=== PATIENT | female | born 1990 | race Caucasian/White ===

== ENCOUNTER 2023-07-14 14:43 | Emergency (ER) | payer OTHER, SELFPAY ==
--- NOTE | 2023-07-14 14:51 | ED.SKABFB ---
HPI - Skin/Abscess/Foreign Bdy General Chief complaint: Skin/Abscess/Foreign Body Stated complaint: skin infection Time Seen by Provider: 07/14/23 14:51 Source: patient Mode of arrival: ambulatory Limitations: no limitations History of Present Illness HPI narrative: Maya is a 32-year-old female patient presenting to the clinic today with complaints of possible poison chiara to her face, chest, and around her waist. She reports symptoms have been going on for a few days now she has tried Ema dish soap, ticnue, and hydrocortisone to alleviate her symptoms. Related Data Allergies Allergy/AdvReac Type Severity Reaction Status Date / Time Penicillins Allergy Mild Rash Verified 07/14/23 15:11 Review of Systems Review of Systems: Pertinent positives per HPI. Patient denies any fever, chills, headache, visual changes, dizziness, cough, runny nose, sore throat, shortness of breath, chest pain, palpitations, nausea, vomiting, diarrhea, constipation, abdominal pain, or any urinary issues. PMFSH Comments At the time of my signature, I reviewed and agree with the nursing past medical, surgical, social, and family history. There is no relevant family history pertinent to the patient complaint. Exam Narrative: General: Well-developed, well nourished, in no apparent distress Head: Normocephalic, atraumatic. Cardio: Regular rate and rhythm, s1 and s2 normal, no murmur appreciated. Resp: Clear to auscultation bilaterally, no rhonchi, rales, wheezing or rubs. Integumentary: [place], warm, and dry, intact without lesion, red raised blistered itchy burning rash to the face, chest wall, and waist Course Course Emergency Course: Portions of this record may have been created with voice recognition software. Level of Care: Express Care Visit Vital Signs Vital signs: Vital Signs Temperature 36.8 C 07/14/23 14:58 Pulse Rate 69 07/14/23 14:58 Respiratory Rate 16 07/14/23 14:58 Blood Pressure 110/59 L 07/14/23 14:58 Pulse Oximetry 100 07/14/23 14:58 Oxygen Delivery Room Air 07/14/23 14:58 Temperature 36.8 C 07/14/23 14:58 Pulse Rate 69 07/14/23 14:58 Respiratory Rate 16 07/14/23 14:58 Blood Pressure 110/59 L 07/14/23 14:58 Pulse Oximetry 100 07/14/23 14:58 Oxygen Delivery Room Air 07/14/23 14:58 Vital signs reviewed MDM - Skin/Abscess/Foreign Bdy MDM Narrative Medical decision making narrative: At the time of visit patient is resting comfortably on the exam table. Patient appears to be nontoxic. Plan: I suspect patient has poison chiara dermatitis. Prescription for dexamethasone 10 mg IM was given as patient has a rash on her face. Prescriptions for taper dose of prednisone and triamcinolone cream was sent to the pharmacy. Supportive measures were discussed with the patient and they voiced understanding discharge instructions and agrees to treatment plan. Return precautions reviewed Differential Diagnosis Differential diagnosis: Likely abscess of skin or subcutaneous tissue, viral exanthem, urticaria, herpes zoster, cellulitis, eczema, insect bites and contact dermatitis Discharge Plan Discharge Clinical Impression: Allergic contact dermatitis due to plant Patient Disposition: Home, Self-Care Condition: Stable Instructions: Antibiotic Form, Poison Chiara (ED) Additional Instructions: Dexamethasone 10 mg IM given in the clinic today Apply triamcinolone cream as directed Take prednisone as directed Avoid hot showers May apply calamine lotion to rash Avoid scratching and this causes rash to spread May take benadryl 25-50mg every 6 hours as needed for itching. Follow up with your PCP in 3-5 days if symptoms persist or sooner if they worsen Go to the Emergency Room if symptoms worsen- fever, rash spreading with treatment, shortness of breath, tongue swelling, drooling, or chest pain Prescriptions: New prednisone 10 mg tablet 10 mg PO DAILY Qty: 30 0RF
[2023-07-14 14:58] VITALS: BP 110/59; PULSE 69; RESP 16; TEMP 36.8; O2SAT 100
[2023-07-14] MEDS: dexAMETHasone SOD PHOS INJ 10 MG/ML 1 ML VIAL IM (15:12)
== END 2023-07-14 15:26 | disposition home or self-care (01) ==
PROVIDERS: Emergency Provider Nurse Practitioner Family; PCP Family Medicine
DX: L23.7 Allergic contact dermatitis due to plants, except food (principal); N80.9 Endometriosis, unspecified
CPT/HCPCS: 96372; 99213; G0463; J1100

== ENCOUNTER 2024-09-07 10:09 | Emergency (ER) | payer OTHER, SELFPAY ==
[2024-09-07 10:20] VITALS: BP 117/80; PULSE 84; RESP 16; TEMP 36.9; O2SAT 100
--- NOTE | 2024-09-07 10:30 | ED_ITS ---
HPI - Skin/Abscess/Foreign Bdy General Chief complaint: Skin/Abscess/Foreign Body Stated complaint: RASH Time Seen by Provider: 09/07/24 10:30 Source: patient Mode of arrival: ambulatory Limitations: no limitations History of Present Illness HPI narrative: 33 yo F presents with poison chiara that has been progressively spreading over the past 2 wks. Has been applying prescription steroid cream withour relief. had th is medication from last episode of poison chiara. All systems reviewed and negative except as noted above. Related Data Allergies Allergy/AdvReac Type Severity Reaction Status Date / Time Penicillins Allergy Mild Rash Verified 09/07/24 10:18 Review of Systems Review of Systems: CONSTITUTIONAL: Denies fever, chills, or sweats. EYES: Denies visual changes, redness, or discharge. ENT: Denies rhinorrhea, congestion, sore throat, or otalgia. CARDIOVASCULAR: Denies chest pain, palpitations, or edema. RESPIRATORY: Denies cough or dyspnea. GASTROINTESTINAL: Denies abdominal pain, nausea, vomiting, or diarrhea. GENITOURINARY: Denies dysuria or hematuria. SKIN: Reports poison chiara rash MUSCULOSKELETAL: Denies back pain, joint pain, or myalgia. NEUROLOGIC: Denies headache, numbness, or weakness. PSYCHIATRIC: Denies anxiety or depression. All other systems reviewed are negative, except as documented in HPI. PMFSH Comments At time of signature, agree with nursing past medical, surgical, social and family history. There is no relevant family history pertinent to the presenting complaint. Exam Narrative: GENERAL: This is a well-nourished, well-developed patient, in no apparent distress. HEAD: normocephalic, atraumatic. EYES: PERRL. Sclera clear/white. Vision is grossly intact. EARS: External ears normal NOSE: External nose normal NECK: Neck supple, non-tender without lymphadenopathy, masses or thyromegaly. CARDIOVASCULAR: Regular rate and rhythm without murmurs, gallops, or rubs. RESPIRATORY: Clear to auscultation. Breath sounds equal bilaterally. No wheezes, rales, or rhonchi. SKIN: warm, Dry, intact with no suspicious lesions or rash, good texture and turgor. NEURO: awake, alert, and oriented to person, place and time. There were no obvious focal neurologic abnormalities. EXTREMITIES: erythematous vesicular rash to bilateral legs, arms, torso and face. Course Course Level of Care: Express Care Visit Vital Signs Vital signs: Vital Signs Temperature 36.9 C 09/07/24 10:20 Pulse Rate 84 09/07/24 10:20 Respiratory Rate 16 09/07/24 10:20 Blood Pressure 117/80 09/07/24 10:20 Pulse Oximetry 100 09/07/24 10:20 Temperature 36.9 C 09/07/24 10:20 Pulse Rate 84 09/07/24 10:20 Respiratory Rate 16 09/07/24 10:20 Blood Pressure 117/80 09/07/24 10:20 Pulse Oximetry 100 09/07/24 10:20 reviewed MDM - Skin/Abscess/Foreign Bdy MDM Narrative Medical decision making narrative: pt given IM kenalog to treat poison chiara rash. did not want to take prednisone. Will continue steroid cream. has been taking benadryl for itching and will continue. pt is well appearing, nontoxic. Differential Diagnosis Differential diagnosis: Likely urticaria, eczema and contact dermatitis Discharge Plan Discharge Clinical Impression: Dermatitis due to plants, including poison chiara, sumac, and oak Patient Disposition: Home Condition: Stable Instructions: Poison Chiara (ED) Additional Instructions: You were given a medication today intramuscular called Kenalog. This medication is used to treat poison chiara reaction. Apply prescription steroid cream sparingly to affected area, avoid face. Continue to take a daily antihistamine to treat itching. Take as directed on packaging. Follow-up with your doctor if improving. Patient Language: Polish Prescriptions: New hydrocortisone 1 % cream 1 applic topical BID PRN (Reason: poison chiara) Qty: 28.4 0RF Rx Instructions: Apply sparingly to affected areas. Avoid face. Follow-up/Referrals: Loly,Leah [Other] Time of Disposition: 10:38
[2024-09-07] MEDS: TRIAMCINOLONE ACET INJ 40 MG/ML VIAL IM (10:43)
== END 2024-09-07 10:54 | disposition home or self-care (01) ==
PROVIDERS: Emergency Provider Nurse Practitioner Family
DX: L23.7 Allergic contact dermatitis due to plants, except food (principal)
CPT/HCPCS: 96372; 99213; G0463; J3301

== ENCOUNTER 2024-12-28 16:53 | Emergency (ER) | payer OTHER, SELFPAY ==
--- OUTSIDE RECORDS SUMMARY | 2024-02-04 04:30 | XMS_ITS ---
Author Organization [facility] Address [address] [place], [place] [id number] Care Team Providers Care Steam Locomotive Firer/Fireman Name Role Phone Answer, Declined Unavailable Unavailable DUONG HWANG Unavailable [phone] Allergies No Known Allergies REASON FOR VISIT *Possible ingrown nail Vital Signs Height 68 in 02/04/2024 Weight 115 lbs 02/04/2024 BMI 17.48 kg/m2 02/04/2024 Height-cm 172.72 cm 02/04/2024 Weight-kg 52.16 kg 02/04/2024 Encounters Encounter Location Date Provider Diagnosis [facility] [address] [place], [place] [id number] 02/04/2024 DUONG HWANG Ingrowing nail L60.0 ; Cellulitis of left toe L03.032 ; Pain in left toe(s) M79.675 and Localized edema R60.0 Assessments Encounter Date Diagnosis (ICD Code) Assessment Notes Treatment Notes Treatment Clinical Notes Section Notes 02/04/2024 Ingrowing nail (ICD-10 - L60.0) I discussed various treatment options to the patient for their left hallux ingrown toenail. The patient decided on non-permenant removal of the nail border. The consent was signed and placed in the patients chart and all questions were answered. Following skin prep, the left hallux was injected with 6ccs of 1% lidocaine plain and the offending nail border was removed with use of ethiopian anvil, freer elevator and curved hemostat. A dry sterile compressive dressing was applied and the patient was given soaking instructions. 02/04/2024 Cellulitis of left toe (ICD-10 - L03.032) The area of cellulitis was evaluated and it should be noted that antibiotics were discussed and a close evaluation was performed to assess the need for IV antibiotics versus oral antibiotics. Due to the non-ascending nature of the cellulitis and with no signs of abscess, topical antibiotics were chosen. 02/04/2024 Pain in left toe(s) (ICD-10 - M79.675) 02/04/2024 Localized edema (ICD-10 - R60.0) Plan Of Treatment Treatment Notes Assessment Notes Ingrowing nail I discussed various treatment options to the patient for their left hallux ingrown toenail. The patient decided on non-permenant removal of the nail border. The consent was signed and placed in the patients chart and all questions were answered. Following skin prep, the left hallux was injected with 6ccs of 1% lidocaine plain and the offending nail border was removed with use of ethiopian anvil, freer elevator and curved hemostat. A dry sterile compressive dressing was applied and the patient was given soaking instructions. Cellulitis of left toe The area of cellu litis was evaluated and it should be noted that antibiotics were discussed and a close evaluation was performed to assess the need for IV antibiotics versus oral antibiotics. Due to the non-ascending nature of the cellulitis and with no signs of abscess, topical antibiotics were chosen. Next Appt Details Follow Up: 2 Weeks, Reason: History and Physical Notes * HPI (History of Present Illness) Category Sub-Category Detail Notes Category Not es HPI New Complaint Patient presents for a new patient consultation., Patient complains of an issue to her left great toe medial boarder being ingrown. Patient states that she tries to remove it herself at home, but the nail is now curling inward, and she is unable to cut it. , Duration of problem is several years. Patient states that her right great toenail is starting to do the same thing. , MA: mca Examination Category Sub-Category Detail Notes Category Not es Physical Examination Vascular: Dorsalis Pedis pulse 2/4 left foot Posterior Tibial pulse 2/4 left foot Dorsalis Pedis pulse 2/4 right foot Posterior Tibial pulse 2/4 right foot, Capillary Refill Time is noted to be less than 3 secs to ten digits, temperature gradient is warm to cool to bilateral lower extremity and pedal hair present, there are no varicosities noted to bilateral lower extremity. Dermatologic: there are no open lesions, an ingrowing nail is noted to lateral border of left hallux with periungual erythema and swelling present, noticeable serous drainage expressed from lateral nail border left hallux, interdigital spaces clean dry and intact, no ecchymoses, mild erythema noted to left hallux lateral nail fold Neurologic: protective sensation intact to light touch, vibratory sensation intact to first metatarsophalangeal joint bilaterally Musculoskeletal: no calf pain noted bilateral lower extremity, arch height 3/5 non weight bearing to bilateral foot, pain to palpation lateral and proximal nail fold to left hallux, pain to palpation nail plate left hallux Progress Notes * Maya ALEXANDREDOB:[birth year] (34 yo F)Acc No.[id number]:02/04/2024 Progress Notes Patient: Maya Talley Provider: Dejon HWANG :1990 A ge:33 Y S ex:Female Date:02/04/2024 Address:[address] [place] [address], [id number] Subjective: * Chief Complaints: * * Possible ingrown nail * HPI: H PI: New Complaint P atient presents for a new patient consultation., Patient complains of an issue to her left great toe medial boarder being ingrown. Patient states that she tries to remove it herself at home, but the nail is now curling inward, and she is unable to cut it. , Duration of problem is several years. Patient states that her right great toenail is starting to do the same thing. , MA: jose. * ROS: G eneral / Constitutional: Patient denies w eakness. R espiratory: Patient denies c hronic cough, shortness of breath, sputum production. C ardiovascular: Patient denies c hest pain, history of CA, irregular heartbeat. M usculoskeletal: Patient denies a rthritis, joint stiffness. ? P eripheral Vascular: Patient denies b lanching of skin, cold extremities, decreased sensation in extremities. S kin: Patient complains of n ail changes, ingrown nails. ? N eurologic: Patient denies d izziness, gait abnormality, headache. * Medical History: Back Trouble * Allergies: N .K.D.A.yesAllergies Verified. Objective: * Vitals: S hoe Size: 8, Wt:115lbs, Wt-k.16 kg, Ht: 68 in, Ht-cm: 172.72 cm, BMI:17.48Index, Body Surface Area: 1.58. * Examination: P hysical Examination: V ascular: Dorsalis Pedis pulse 2/4 left foot Posterior Tibial pulse 2/4 left foot Dorsalis Pedis pulse 2/4 right foot Posterior Tibial pulse 2/4 right foot, Capillary Refill Time is noted to be less than 3 secs to ten digits, temperature gradient is warm to cool to bilateral lower extremity and pedal hair present, there are no varicosities noted to bilateral lower extremity. Dermatologic: there are no open lesions, an ingrowing nail is noted to lateral border of left hallux with periungual erythema and swelling present, noticeable serous drainage expressed from lateral nail border left hallux, interdigital spaces clean dry and intact, no ecchymoses, mild erythema noted to left hallux lateral nail fold Neurologic: protective sensation intact to light touch, vibratory sensation intact to first metatarsophalangeal joint bilaterally Musculoskeletal: no calf pain noted bilateral lower extremity, arch height 3/5 non weight bearing to bilateral foot, pain to palpation lateral and proximal nail fold to left hallux, pain to palpation nail plate left hallux. Assessment: * Assessment: 1. I ngrowing nail - L60.0 (Primary) 2 . C ellulitis of left toe - L03.032? 3. P ain in left toe(s) - M79.675 4 . L ocalized edema - R60.0 Plan: * Treatment: 2. C ellulitis of left toe Notes: The area of cellulitis was evaluated and it should be noted that antibiotics were discussed and a close evaluation was performed to assess the need for IV antibiotics versus oral antibiotics. Due to the non-ascending nature of the cellulitis and with no signs of abscess, topical antibiotics were chosen. * Procedure Codes: 1 1730 REMOVAL OF NAIL PLATE, Modifiers: TA * Follow Up: 2 Weeks Billing Information: * Visit Code: 31886 Office Visit, New Pt., Level 3. Modifiers: 25 * Procedure Codes: 82107 REMOVAL OF NAIL PLATE. Modifiers: TA * Electronic signature of TONYA HWANG DPM on 12/28/2024 at 04:55 PM GRINDING SUPERVISOR Sign off status: Pending * Provider: Dejon HWANG Date: 04/06/2023 Generated for Aminata ramirez/Wing/Petros on: 02/28/2024 04:55 PM GRINDING SUPERVISOR
--- OUTSIDE RECORDS SUMMARY | 2024-12-12 07:30 | XMS_ITS ---
Author Organization [facility] [facility] Address [address] [place] [address] Care Team Providers Care Habitat Management Coordinator Name Role Phone Shanell Cassidy Unavailable [phone] REASON FOR VISIT 2 month f/u Social History Sex Assigned At : Social History Observation Description Sex Assigned At Female Encounters Encounter Location Date Provider Diagnosis [facility] [employer] [facility] [address] [facility] [address] [place] [address] 12/12/2024 Shanell Cassidy Plan Of Treatment Next Appt Details Provider Name:Kiah Tate, 03/06/2025 10:00:00 AM, [address], [facility] [address], [place], [address], Provider Name:Shanell muller, 05/15/2025 02:00:00 PM, [address], [facility] [address], [place], [address], Progress Notes * Maya ALEXANDREDOB:[birth year] (34 yo F)Acc No.[id number]:12/12/2024 Patient: Maya Talley Provider: KRISTIAN WILHELM :1990 A ge:34 Y S ex:Female Date:12/12/2024 Phone: Address:[address], [id number] Subjective: * Chief Complaints: * 2 month f/u Billing Information: * Procedure Codes: * Electronic signature of KRISTIAN Zuniga on 12/28/2024 at 04:56 PM DIRECTOR OF EDUCATION AND TRAINING Sign off status: Pending * Provider: Kailey SALDIVAR, PMHNP Date: Generated for Aminata ramirez/Wing/Petros on: 02/28/2024 04:56 PM DIRECTOR OF EDUCATION AND TRAINING
--- NOTE | ~2024-12-28 | CT_ITS ---
CT brain wo con HISTORY:trauma COMPARISON: None. TECHNIQUE: Axial images were obtained of the head without intravenous contrast. FINDINGS: No acute intracranial hemorrhage, mass effect or midline shift. No extra-axial fluid collections. The calvarium is intact. There are mucosal thickening of the right maxillary sinus and ethmoids. Mastoid air cells are clear. IMPRESSION: No acute intracranial hemorrhage or extra axial fluid collections. All CT scans at this facility are performed using low dose modulation techniques as appropriate to perform exam including the following: automated exposure control; use of iterative reconstruction technique; adjustment of the mA and/or kV according to patient size (this includes techniques or standardized protocols for targeted exams where dose is matched to indication/reason for exam). Reviewed, dictated and finalized at location S. ATCHER MAINTENANCE IMPRESSION: No acute intracranial hemorrhage or extra axial fluid collections. All CT scans at this facility are performed using low dose modulation techniqu es as appropriate to perform exam including the following: automated exposure c ontrol; use of iterative reconstruction technique; adjustment of the mA and/or kV according to patient size (this includes techniques or standardized protocol s for targeted exams where dose is matched to indication/reason for exam).
--- NOTE | ~2024-12-28 | XR_ITS ---
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 Findings: No acute fracture or malalignment. No significant degenerative changes. Soft tissues unremarkable. Impression: No acute fracture or malalignment. Reviewed, dictated and finalized at location P. GRAIN OR LIVESTOCK FARM MANAGER Impression: No acute fracture or malalignment.
--- NOTE | ~2024-12-28 | CT_ITS ---
CT cervical spine wo con HISTORY: trauma COMPARISON: None TECHNIQUE: Axial images of the cervical spine were obtained. Multiplanar reconstruction in the coronal, sagittal and axial reformats to evaluate for cervical fracture. FINDINGS: The images demonstrate no acute fracture or paravertebral soft tissue swelling. There is no high-grade central or foraminal stenosis. No significant degenerative changes are noted. The visualized aspect of the upper lungs are clear. IMPRESSION: No acute fracture or subluxation. All CT scans at this facility are performed using low dose modulation techniques as appropriate to perform exam including the following: automated exposure control; adjustment of the mA and/or kV according to patient size (this includes techniques or standardized protocols for targeted exams where does is matched to indication/reason for exam; i.e. extremities or head); use of iterative reconstruction technique). Reviewed, dictated and finalized at location S. OR RANCH ANIMAL CARETAKER IMPRESSION: No acute fracture or subluxation. All CT scans at this facility are performed using low dose modulation techniqu es as appropriate to perform exam including the following: automated exposure c ontrol; adjustment of the mA and/or kV according to patient size (this includes techniques or standardized protocols for targeted exams where does is matched to indication/reason for exam; i.e. extremities or head); use of iterative gonsalo nstruction technique).
--- NOTE | ~2024-12-28 | CT_ITS ---
CT chest abdomen pelvis w con HISTORY: trauma . COMPARISON: None. TECHNIQUE: Axial images of the chest, abdomen and pelvis were obtained without and with infusion of 100 Isovue 300. FINDINGS: CT CHEST: The examination demonstrates no pulmonary nodules, infiltrates and/or effusions. No pathologically enlarged hilar or mediastinal lymphadenopathy is seen. Cardiac size and mediastinal configuration are normal in appearance. The pulmonary artery and thoracic aorta are normal in caliber and patency. Osseous structures are intact. The visualized organs of the upper abdomen are unremarkable. IMPRESSION: No acute cardiopulmonary process. No pathologic enhancement is noted. No pathologically enlarged mediastinal lymphadenopathy is noted. CT abdomen and pelvis with contrast: The liver parenchyma is unremarkable. No intrahepatic mass or ductal dilatation is evident. The gallbladder is unremarkable. The pancreas and spleen are normal in appearance. The adrenal glands are symmetric in size. The kidneys demonstrate symmetric uptake and excretion of contrast. No cystic mass is evident. There is no solid mass. There is no hydronephrosis. Evaluation of the stomach and bowel loops are limited due to lack of oral contrast. The appendix is not visualized however no secondary signs of appendicitis are identified. The bladder and rectum are normal. The uterus and both adnexa are unremarkable. No free intraperitoneal fluid or air is evident. There is no significant retroperitoneal lymphadenopathy. The aorta, visceral vessels and renal arteries demonstrate normal caliber and patency. The lower thoracic and lumbar vertebrae are in normal alignment. IMPRESSION: No acute abnormality is noted in the abdomen and pelvis. All CT scans at this facility are performed using low dose modulation techniques as appropriate to perform exam including the following: automated exposure control; use of iterative reconstruction technique; adjustment of the mA and/or kV according to patient size (this includes techniques or standardized protocols for targeted exams where dose is matched to indication/reason for exam) Reviewed, dictated and finalized at location [facility] IMPRESSION: No acute cardiopulmonary process. No pathologic enhancement is noted. No pathologically enlarged mediastinal lymphadenopathy is noted. CT abdomen and pelvis with contrast: The liver parenchyma is unremarkable. No intrahepatic mass or ductal dilatation is evident. The gallbladder is unremarkable. The pancreas and spleen are zena l in appearance. The adrenal glands are symmetric in size. The kidneys demonstrate symmetric uptake and excretion of contrast. No cystic m ass is evident. There is no solid mass. There is no hydronephrosis. Evaluation of the stomach and bowel loops are limited due to lack of oral contr ast. The appendix is not visualized however no secondary signs of appendicitis are identified. The bladder and rectum are normal. The uterus and both adnexa are unremarkable. No free intraperitoneal fluid or air is evident. There is no significant retr operitoneal lymphadenopathy. The aorta, visceral vessels and renal arteries demonstrate normal caliber and p atency. The lower thoracic and lumbar vertebrae are in normal alignment. IMPRESSION: No acute abnormality is noted in the abdomen and pelvis. All CT scans at this facility are performed using low dose modulation techniqu es as appropriate to perform exam including the following: automated exposure c ontrol; use of iterative reconstruction technique; adjustment of the mA and/or kV according to patient size (this includes techniques or standardized protocol s for targeted exams where dose is matched to indication/reason for exam)
--- OUTSIDE RECORDS SUMMARY | 2024-12-28 16:56 | XMS_ITS | Patient Health Record ---
Author Organization [facility] Address [address] [place] [address] Care Team Providers Care Relief Man Name Role Phone Shanell Cassidy Unavailable [phone] Allergies No Known Allergies Results Component Value Reference Range Notes UDT Reviewed date:10/19/2024 09:34:33 AM Interpretation: Performing Lab: Notes/Report: Amphetamine (AMP) N 0 - 1000 ng/ml Buprenorphine (BUP) N 0 - 10 ng/ml Oxazepam (BZO) N 0 - 300 ng/ml Cocaine (OLIVIA) N 0 - 300 ng/ml Methamphetamine (mAMP) N 0 - 300 ng/ml Methylenedioxymethamphetamine (MDMA) N 0 - 500 ng/ml Morphine (MOP) N 0 - 25 ng/ml Methadone (MTD) N 0 - 300 ng/ml Oxycodone (OXY) N 0 - 300 ng/ml THC N 0 - 50 ng/ml x N 0 - 1000 ng/ml x N 0 - 1000 ng/ml x N 0 - 300 ng/ml x N 0 - 300 ng/ml Reason For Referral No Information Medications Medication SIG (Take, Route, Frequency, Duration) Notes Start Date End Date Status hydrOXYzine HCl 10 MG Tablet 1 tablet as needed Orally Once a day 10/20/2024 Active Propranolol HCl 10 MG Tablet 1 tablet Orally once a day; Duration: 30 days As needed for anxiety 10/20/2024 Not-Taking Social History Tobacco Use: Social History Observation Description Date Details (start date - stop date) Never Smoker NA - NA Sex Assigned At : Social History Observation Description Sex Assigned At Female Social History Miscellaneous: Social Info Question Answer Notes Safety issues: Are there any firearms in the house? No Social History Social Info Question Answer Notes Household: Marital Status: Number of Adults in household: 2 Number of Children in Household: 4 Level of Education: Finished High School Drug/Alcohol: Social Info Question Answer Notes Drugs Have you used drugs other than those for medical reasons in the past 12 months? No AUDIT-C (Standard) Did you have a drink containing alcohol in the past year? Yes How often did you have six or more drinks on one occasion in the past year? Never (0 point) How many drinks did you have on a typical day when you were drinking in the past year? 1 or 2 drinks (0 point) How often did you have a drink containing alcohol in the past year? Monthly or less (1 point) Tobacco Use: Social Info Question Answer Notes Tobacco Control (Standard) Tobacco use: Nonsmoker Problems Problem Type SNOMED Code ICD Code Onset Dates Problem Status W/U Status Risk Notes Problem Generalized anxiety disorder (90139857) ERIN (generalized anxiety disorder) (F41.1) Active confirmed Vital Signs Heart Rate 87 /min 10/14/2024 Height-cm 172.72 cm 10/20/2024 Blood pressure diastolic 84 mm Hg 10/14/2024 Weight-kg 48.99 kg 10/14/2024 Height 68 in 10/20/2024 Blood pressure systolic 113 mm Hg 10/14/2024 Weight 108 lbs 10/14/2024 BMI 16.42 kg/m2 10/14/2024 Encounters Encounter Location Date Provider Diagnosis [facility] [place] [facility] [address] [facility] [[email or web address] [address] [place] [address] 10/14/2024 Shanell Cassidy ERIN (generalized anxiety disorder) F41.1 [facility] [place] [facility] [place] [address] [facility] [[email or web address]] [address] [place] [address] 10/20/2024 Shanell Kursteven ERIN (generalized anxiety disorder) F41.1 [facility] [place] [facility] [place] [address] [facility] [[email or web address]] [address] [place] [address] 12/16/2024 Shanell Kursteven ERIN (generalized anxiety disorder) F41.1 [facility] [place] [facility] [place] [address] [facility] [[email or web address] [address] [place] [address] 10/18/2024 Shanell Cassidy [facility] [place] [facility] [place] [address] [place] [address] 10/20/2024 Shanell Cassidy [facility] [place] [address] [place] [address] 10/20/2024 Shanell Cassidy [facility] [address] [place] [address] 12/16/2024 Shanell Cassidy Assessments Encounter Date Diagnosis (ICD Code) Assessment Notes Treatment Notes Treatment Clinical Notes Section Notes 10/14/2024 ERIN (generalized anxiety disorder) (ICD-10 - F41.1) 10/20/2024 ERIN (generalized anxiety disorder) (ICD-10 - F41.1) 12/16/2024 ERIN (generalized anxiety disorder) (ICD-10 - F41.1) 10/14/2024 Other Discussed treatment options with patient, she hesitates to start a daily medication such as SSRIs given strong familial history of suicide attempts and completed suicides. Start hydroxyzine 10mg TID PRN for anxiety management. Discussed depressive symptoms compounded by situational stressors, trauma history which she has sought counseling for, anxiety. Expect depression to improve with situational stress resolution, anxiety better managed. -Educated can utilize Hanny's Wort as an alternative for depression, anxiety management. Research supports use in mild to moderate depression. Can not use with other psychiatric medications generally due to increase risk of serotonin syndrome. -Assessment and treatment plan reviewed with patient. -Compliance with treatment plan importance discussed. -Discussed the risks/benefits of this medication -Discussed medication side effects. -Contact office if symptoms worsen. -Discussed that it can take up to 6-8 weeks to see full therapeutic effects of psychotropic medications. -Crisis prevention hotline 988. 10/20/2024 Other Start propranolol 10mg qd prn for anxiety Patient educated on all medications including potential benefits, side effects, risks. Educated on proper dosing schedule and importance of compliance. -Assessment and treatment plan reviewed with patient. -Compliance with treatment plan importance discussed. -Discussed the risks/benefits of this medication -Discussed medication side effects. -Contact office if symptoms worsen. -Discussed that it can take up to 6-8 weeks to see full therapeutic effects of psychotropic medications. -Crisis prevention hotline 988. 12/16/2024 Other Continue hydroxyzine as needed for panic, anxiety Patient educated on all medications including potential benefits, side effects, risks. Educated on proper dosing schedule and importance of compliance. Referred to therapy with Kiah for possible EMDR Supportive theapy provided -Assessment and treatment plan reviewed with patient. -Compliance with treatment plan importance discussed. -Discussed the risks/benefits of this medication -Discussed medication side effects. -Contact office if symptoms worsen. -Discussed that it can take up to 6-8 weeks to see full therapeutic effects of psychotropic medications. -Crisis prevention hotline 148. Plan Of Treatment Next Appt Details Provider Name:Kiah Tate, 03/06/2025 10:00:00 AM, [address], [facility] [[email or web address]] [address], [place], [address], Provider Name:Shanell muller, 05/15/2025 02:00:00 PM, [address], [facility] [[email or web address]] [address], [place], [address], Insurance Providers Payer Name Payer Address Payer Phone Subscriber Number Group Number Insured Name Patient Relationship to Insured Coverage Start Date Coverage End Date [facility] [address] [place] [address] [id number] Maya Arias Self - patient is the insured Medical (General) History Medical History History ICD Code abdominal aortic aneurysm: No atrial fibrillation: No chronic fatigue syndrome: No essential tremor: No hyperlipidemia: No hypertension: No Parkinson's disease: No restless leg syndrome: No stroke: No subdural hematoma: No type 1 diabetes mellitus: No type 2 diabetes mellitus: No vitamin B12 deficiency: No vitamin D deficiency: No Surgical History Surgery Date(Month/Year) Labroscopy for endometriosis
--- OUTSIDE RECORDS SUMMARY | 2024-12-28 16:56 | XMS_ITS | Clinical Summary ---
Author Organization [facility] Address [address] [place] [address] Care Team Providers Care Harness Cleaner Name Role Phone Unavailable Primary Care Provider Unavailabl e Social History Tobacco Use Types Packs/Day Years Used Date Smoking Tobacco: Never Assessed Comments Unknown Sex and Gender Information Value Date Recorded Sex Assigned at Not on file Legal Sex Female 4:45 PM CDT Gender Identity Not on file Sexual Orientation Not on file Plan of Treatment Health Maintenance Due Date Last Done Comments Cervical Cancer Screening Pa p Smear (Age 30 to 64) Every 3 Years 1990 Annual Physical 1993 Hepatitis C 2008 DTaP, Tdap and Td Vaccines ( 1 - Tdap) 2009 Hepatitis B Vaccines (1 of 3 - 19+ 3-dose series) 2009 HPV Vaccines (1 - 3-dose SCD M series) 2017 Cervical Cancer Screening Pa p with HPV Testing (Age 30 to 64) Every 5 Years 2020 Cervical Cancer Screening with HPV 2020 COVID-19 Vaccine (2024-2 6 season) 2024 Influenza Adult (#1) 2024 Hepatitis A Vaccines Aged Out No long er eligible based on patient's age to complete this topic Meningococcal B Vaccine Aged Out No l onger eligible based on patient's age to complete this topic Meningococcal Vaccine Aged Out No cris ernst eligible based on patient's age to complete this topic Pneumococcal Vaccine: Pediat rics (0 to 5 Years) and At-Risk Patients (6 to 49 Years) Aged Out No longer eligible b ased on patient's age to complete this topic RSV Immunizations Under 20 Months Aged Out No longer eligible based on patient's age to complete this topic
--- OUTSIDE RECORDS SUMMARY | 2024-12-28 16:56 | XMS_ITS | Encounter Summary ---
Author Organization [facility] Address [address] [place] [address] Care Team Providers Care Keg Filler Name Role Phone [facility], External Provider Primary Care Provider U navailable Reason for Visit * Reason Onset Date Comments Feeding Problem 03/20/2015 Encounter Details Date Type Department Care Team (Late st Contact Info) Description 03/20/2015 Telephone [facility] [address] [place] [address] Viktoria Carr RN Feeding Problem Social History Tobacco Use Types Packs/Day Years Used Date Smoking Tobacco: Never Smokeless Tobacco: Never Alcohol Use Standard Drinks/Week Comments No 0 (1 standard drink = 0.6 oz pur e alcohol) Comments No Sex and Gender Information Value Date Recorded Sex Assigned at Not on file Legal Sex Female 11:41 AM CDT Gender Identity Not on file Sexual Orientation Not on file documented as of this encounter Miscellaneous Notes * Telephone Encounter - Viktoria Carr RN - 03/20/2015 3:41 PM CST Maya called [facility] [place] to report feeding issues with her 9 week old daughter, born here [birth year]. Reports is fussy at breast, and this has increased in recent days. Has concerns about her latch including tight posterior frenulum and had this evaluated by a physician. She states upon pumping her milk supply has decreased. Outpatient consult scheduled for 03/21/15 ATIONIST documented in this encounter Plan of Treatment Not on file documented as of this encounter Visit Diagnoses Not on filedocumented in this encounter Care Teams Keg Filler Relationship Specialty Start Date End Date [facility], External Provider [address] [place] [address] PCP - General 02/24/18 documented as of this encounter
--- OUTSIDE RECORDS SUMMARY | 2024-12-28 16:56 | XMS_ITS | Patient Health Record ---
Author Organization [facility] Address [address] [place], [place] [address] Care Team Providers Care Credit Compliance Officer Name Role Phone Answer, Declined Unavailable Unavailable DUONG HWANG Unavailable [phone] Allergies No Known Allergies Reason For Referral No Information Vital Signs Height-cm 172.72 cm 02/04/2024 Weight-kg 52.16 kg 02/04/2024 Height 68 in 02/04/2024 Weight 115 lbs 02/04/2024 BMI 17.48 kg/m2 02/04/2024 Encounters Encounter Location Date Provider Diagnosis [place] [address] [place], [place] [id number] 02/04/2024 DUONG HWANG Ingrowing nail L60.0 ; Cellulitis of left toe L03.032 ; Pain in left toe(s) M79.675 and Localized edema R60.0 Assessments Encounter Date Diagnosis (ICD Code) Assessment Notes Treatment Notes Treatment Clinical Notes Section Notes 02/04/2024 Cellulitis of left toe (ICD-10 - L03.032) The area of cellulitis was evaluated and it should be noted that antibiotics were discussed and a close evaluation was performed to assess the need for IV antibiotics versus oral antibiotics. Due to the non-ascending nature of the cellulitis and with no signs of abscess, topical antibiotics were chosen. 02/04/2024 Ingrowing nail (ICD-10 - L60.0) I [...] nail border was removed with use of martiniquais anvil, freer elevator and curved hemostat. A dry sterile compressive dressing was applied and the patient was given soaking instructions. 02/04/2024 Pain in left toe(s) (ICD-10 - M79.675) 02/04/2024 Localized edema (ICD-10 - R60.0) Plan Of Treatment No Information Insurance Providers Payer Name Payer Address Payer Phone Subscriber Number Group Number Insured Name Patient Relationship to Insured Coverage Start Date Coverage End Date [facility] [address] [address] [place] [address] [id number] Maya Arias Self - patient is the insured Medical (General) History Medical History History ICD Code Back Trouble
--- OUTSIDE RECORDS SUMMARY | 2024-12-28 16:56 | XMS_ITS | Clinical Summary ---
Author Organization [facility] Address [address] [place] [address] Phone Care Team Providers Care Dockmaster Name Role Phone [facility], External Provider Primary Care Provider U navailable Allergies Active Allergy Reactions Criticality Noted Date Comments Penicillins Rash Medium 09/13/2014 Rash, noted as a child Medications vit-iron fumarate-FA ( S) 27-0.8 mg TabletIndication s:juice plus is Take 1 Tablet by mouth daily . Active Active Problems Problem Noted Date Diagnosed Date care of multigravida, antepartum 2020 Rh negative status during 09/13/2014 Overview (07/17/2020): Last Assessment & Plan: Patient received Rhogam injection on 06/29/14 secondary to threatened AB. Date confirmed after reviewing patient's medical records, patient was 12.3 weeks gestation. Assessment & Plan (10/05/2014 7:21 AM CDT): Patient received Rhogam injection on 06/29/14 secondary to threatened AB. Date confirmed after reviewing patient's medical records, patient was 12.3 weeks gestation. Assessment & Plan (09/13/2014 11:23 AM CDT): Patient reports was given Rhogam at 11 weeks due to episode of bleeding. Patient will need Rhogam at 28 weeks Vaginal bleeding before 22 weeks gestation Acute cystitis with hematuria Resolved Problems Problem Noted Date Diagnosed Date Resolved Date 01/11/15 01/11/2015 02/23/2020 care in third trimester 01/04/2015 03/09/2017 state, incidental 09/13/2014 0 03/09/2017 Low-lying placenta in second trimester 08/16/2014 11/02/2014 Overview (11/02/2014): Sonogram on 08/16/14 with [facility] indicated anterior placenta with inferior edge that extends to within 2cm of internal os, Plan for patient to have repeat scan at [facility] at 28 weeks for placenta location. SONO ON 10/17/2014 in [facility]---PLACENTA NO LONGER LOW LYING Immunizations Immunization Administration Dates Next Due Rho (D) IMMUNE GLOBULIN 1,50 0 UNIT(300 MCG) INJECTION 03/17/2019,01/29/2017,10/31/2016,2014,10/19/2014 Rhogam (Rhig) Human Full Dose IM 017,10/31/2016,01/12/2015,2014 Family History Medical History Relation Name Comments Healthy Father Healthy Maternal Grandfather Healthy Maternal Grandmother Healthy Mother Healthy Paternal Grandfather Healthy Paternal Grandmother Healthy Sister Breast Cancer Neg Hx Colon Cancer Neg Hx Ovarian Cancer Neg Hx Relation Name Status Comments Father Alive Maternal Grandfather Alive Maternal Grandmother Alive Mother Alive Paternal Grandfather Alive Paternal Grandmother Alive Sister Alive Social History Tobacco Use Types Packs/Day Years Used Date Smoking Tobacco: Never Smokeless Tobacco: Never Alcohol Use Standard Drinks/Week Comments No 0 (1 standard drink = 0.6 oz pur e alcohol) Feeling Safe Answer Date Recorded Are you in a relationship wi th someone who hurts you emotionally and/or physically? No 08/23/2022 Comments No Sex and Gender Information Value Date Recorded Sex Assigned at Not on file Legal Sex Female 11:41 AM CDT Gender Identity Not on file Sexual Orientation Not on file Last Filed Vital Signs Vital Sign Reading Time Taken Comments Blood Pressure 115/82 08/23/2022 9:05 AM CDT Pulse 62 08/23/2022 8:45 AM CDT Temperature 36.9 C (98.4 F) 08/23/2022 2:53 AM CDT Respiratory Rate 16 08/23/2022 6:00 AM CDT Oxygen Saturation 100% 08/23/2022 8:45 AM CDT Inhaled Oxygen Concentration - - Weight 49.9 kg (110 lb) 08/23/2022 2:53 AM CDT Height 172.7 cm (5' 8) 08/23/2022 2:53 AM CDT Body Mass Index 16.73 08/23/2022 2:53 AM CDT Plan of Treatment Health Maintenance Due Date Last Done Comments DTAP/TDAP/TD VACCINES (1 - Tdap) 2009 HEPATITIS B VACCINES (1 of 3 - 19+ 3-dose series) 11/17 HPV/Cotest (21-29) 12/11/2011 HPV VACCINES (1 - 3-dose SCDM series) 2017 CERVICAL CANCER SCREENING 2020 HPV/Cotest (30-65) 2020 PAP SMEAR 2020 05/08/2014 INFLUENZA VACCINE (#1) 2024 Procedures Procedure Name Priority Date/Time Associated Diagnosis Comments CERV/VAG CYTOPATH, THIN PREP Routine 05/08/2014 Rh negative status during , second trimester, fetus 1 state, incidental from Last 3 Months or Most Recently Relevant to Health Maintenance Results * CERV/VAG CYTOPATH, THIN PREP (05/08/2014) ABSTRACTED CERV OR VAG CYTOPATH NILM EXTERNAL LAB Endocervical Historical Provider PATHOLOGY/CYTOLOGY ORDERABLE S Final Result EXTERNAL LAB from Last 3 Months or Most Recently Relevant to Health Maintenance Insurance [facility] [id number] Advance Directives For more information, please contact: [phone] * Full Code (Latest Code Status on File) Date Activated Date Inactivated Comments 09/02/2020 9:47 PM 09/03/2020 10:39 PM * Full Code Date Activated Date Inactivated Comments 09/02/2020 8:19 AM 09/02/2020 9:47 PM * Full Code Date Activated Date Inactivated Comments 01/27/2017 3:37 AM 01/27/2017 11:49 PM * Full Code Date Activated Date Inactivated Comments 01/11/2015 2:15 PM 01/12/2015 4:49 PM * Full Code Date Activated Date Inactivated Comments 01/11/2015 4:30 AM 01/11/2015 2:15 PM Care Teams Dockmaster Relationship Specialty Start Date End Date [facility], External Provider [address] [place] [address] PCP - General 02/24/18
--- OUTSIDE RECORDS SUMMARY | 2024-12-28 16:56 | XMS_ITS | Clinical Summary ---
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 Role Phone Lonnie Matute MD Primary Care Provider [phone] Allergies Active Allergy Reactions Criticality Noted Date Comments Penicillins Anaphylaxis,Rash High 09/13/2014 rash Medications hydrOXYzine (ATARAX) 10 mg tablet Take 1 tablet (10 mg total) by mouth daily as needed 10/14/2024 Active propranoloL (INDERAL) 10 mg tablet Take 1 tablet (10 mg total) by mouth daily as needed 10/20/2024 Active Active Problems Problem Noted Date Diagnosed Date Abnormal vaginal bleeding 10/26/2024 Resolved Problems Problem Noted Date Diagnosed Date Resolved Date Normal labor 01/11/2015 10/10/2024 Rh negative status during 09/13/2014 10/10/2024 Overview (02/01/2019): Last Assessment & Plan: Patient received Rhogam injection on 06/29/14 secondary to threatened AB. Date confirmed after reviewing patient's medical records, patient was 12.3 weeks gestation. Encounters Date Type Department Care Team Description 11/02/2024 Telephone [facility] [address] [place] [address] [address] [place] [address] Jorge Santamaria MD 10/26/2024 Telephone [facility] [address] [place] [phone] Jorge Santamaria MD Surgery Confirmation 10/25/2024 Telephone [facility] [address] [place] [phone] Jorge Santamaria MD Surgery Confirmation 10/24/2024 3:30 PM CDT Office Visit [facility] [address] [place] [phone] Jorge Santamraia MD Abnormal uterine bleeding (Primary Dx); Endometriosis 10/24/2024 1:30 PM CDT - 10/24/2024 11:59 PM CDT Hospital Encounter [facility] - Ultrasound [address] [facility], 7th Floor, [address] [facility] [place] [address] Menorrhagia with irregular cycle Discharge Disposition: Discharge to home or self care 10/11/2024 Results Follow-Up [facility] [address] [address] Mahnaz Joseph CNM Comprehensive metabolic panel, CBC with auto differential, T4, free, Additional followed-up results: 6 10/10/2024 1:34 PM CDT - 10/10/2024 11:59 PM CDT Hospital Encounter [address] [phone] Menorrhagia with irregular cycle; Screening for malignant neoplasm of cervix Discharge Disposition: Discharge to home or self care 10/10/2024 12:00 PM CDT Office Visit [facility] Midwifery at [address] [address] Mahnaz Joseph CNM Screening for malignant neoplasm of cervix (Primary Dx); Menorrhagia with irregular cycle 10/10/2024 11:30 AM CDT Clinical Support [facility] [address] [facility] [address] [place] [address] Endometriosis (Primary Dx); Abnormal uterine bleeding (AUB) 10/10/2024 Telephone [facility] [address] [facility] [address] [place] [address] Jorge Santamaria MD from Last 3 Months Immunizations Immunization Administration Dates Next Due Rho (D) Immune Globulin 01/29/2017,10/31/2016,,10/19/2014 Family History Medical History Relation Name Comments Breast cancer Other Breast Cancer - [place] (Added by TW Conv) Cancer Other Reported Family History Of Cancer - [place] (Added by TW Conv) Heart disease Other Heart Disease - [place] GRANDMA (Added by TW Conv) Relation Name Status Comments Other Social History Tobacco Use Types Packs/Day Years Used Date Smoking Tobacco: Never Smokeless Tobacco: Never Personal Safety Answer Date Recorded Have you ever been in or are you currently in a harmful physical or emotional relationship or is someone making you feel afraid or unsafe? 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 Gender Identity Not on file Sexual Orientation Not on file Obstetrics History Para Term AB IAB SAB Ectopic Multiple Livin g Live Births 3 2 2 2 2 Date Outcome GA Total Labor Labor/2nd/3rd Weight Sex Type Anes PTL Jade A1 A5 Name Clin 2014 Term 40w 3d 2h 05m/ 2.892 kg (6 lb 6 oz) F Vag-S pont Epidur al N Livin g 8 9 Leydi NEGRETE Delivery Location:[facility] Comments:No observed a nomalies 2016 Term 40w 3d 12h 40m/0h 13m/ 3.033 kg (6 lb 11 oz) F Vag-S pont N Livin g 9 9 Mehdi GUEVARA Delivery Location:[facility] Comments:No observed a nomalies Last Filed Vital Signs Vital Sign Reading Time Taken Comments Blood Pressure 98/64 10/24/2024 3:13 PM CDT Pulse 54 08/21/2023 11:05 PM CDT Temperature 36.8 C (98.3 F) 08/21/2023 6:35 PM CDT Respiratory Rate 18 08/21/2023 6:35 PM CDT Oxygen Saturation 98% 08/21/2023 11:05 PM CDT Inhaled Oxygen Concentration - - Weight 50.4 kg (111 lb 3.2 oz) 10/24/2024 3:13 P M CDT Height 157.5 cm (5' 2) 10/24/2024 3:13 PM CDT Body Mass Index 20.34 10/24/2024 3:13 PM CDT Plan of Treatment Upcoming Encounters Date Type Department Care Team (Latest Contact Info) Description 01/31/2025 7:30 AM 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 Hospital Encounter [facility] [address] [place] [phone] Jorge Santamaria MD [address] [address] 01/31/2025 7:30 AM WELLFIELD TECHNICIAN - 01/31/2025 10:30 AM WELLFIELD TECHNICIAN Surgery [facility] [address] [place] [phone] Jorge Santamaria MD [address] [address] Robotic Assisted Hysterectomy, Bilateral Salpingectomy Scheduled Procedures Name Priority Associated Diagnoses Date/Ti me XI HYSTERECTOMY - LAPAROSCOPIC ROBOTIC ASSISTED Abnormal vaginal bleeding 01/31/2025 7:30 AM 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 Health Maintenance Due Date Last Done Comments Depression Screening 1990 Hepatitis C Screening 1990 DTaP/Tdap/Td Vaccine (1 - Tdap) 2001 Varicella Vaccines (1 of 2 - 13+ 2-dose series) 12/11/2003 Hepatitis B Screening 2008 Regular Well Visit/Exam 18-64 2008 HPV Vaccines (1 - 3-dose SCD M series) 2017 Influenza Vaccine (#1) 2024 Cervical Cancer Screening 10/10/20252024, 10/10/2024 Pneumococcal vaccine <65 Aged Out No longer eligible based on patient's age to complete this topic Procedures Procedure Name Priority Date/Time Associated Diagnosis Comments US TRANSVAGINAL Schedule Routine, Read Routine (OP Routine) 10/26/2024 7:56 PM CDT Endometriosis Abnormal uterine bleeding (AUB) US PELVIS W ENDOVAGINAL Schedule Routine, Read Routine (OP Routine) 10/24/2024 1:34 PM CDT Menorrhagia with irregular cycle PAP AND HIGH RISK HPV, REFLEX TO GENOTYPING Routine 10/10/2024 1:26 PM CDT Screening for malignant neoplasm of cervix SURGICAL PATHOLOGY Routine 10/10/2024 1: 26 PM CDT Menorrhagia with irregular cycle EGFR Routine 10/10/2024 1:25 PM CDT Menorrhagia with irregular cycle THINPREP PROCESSING (MOLECULAR COMPONENT) Routine 10/10/2024 1:25 PM CDT Menorrhagia with irregular cycle HIGH RISK HPV DNA DETECTION WITH GENOTYPING Routine 10/10/2024 1:25 PM CDT Menorrhagia with irregular cycle DIFFERENTIAL AUTO Routine 10/10/2024 1:2 5 PM CDT Menorrhagia with irregular cycle TSH Routine 10/10/2024 1:25 PM CDT Menorrhagia with irregular cycle T3, FREE Routine 10/10/2024 1:25 PM CDT Menorrhagia with irregular cycle T4, FREE Routine 10/10/2024 1:25 PM CDT Menorrhagia with irregular cycle CBC WITH AUTO DIFFERENTIAL Routine 10/10/2024 1:25 PM CDT Menorrhagia with irregular cycle COMPREHENSIVE METABOLIC PANEL Routine 10/10/2024 1:25 PM CDT Menorrhagia with irregular cycle from Last 3 Months Results * US Transvaginal (10/26/2024 7:56 PM CDT) Anatomical Region Laterality Modality Pelvis N/A Ultrasound Narrative 10/26/2024 7:56 PM CDT Uterus anteverted, normal in shape/contour. Endometrium has hyperechoic contents within, but since pt is actively bleeding, unable to determine if just blood or also polyp within? Left ovary has simple appearing cyst vs follicle on it 22.7mm avg. Right ovary WNL. Mild free fluid within posterior cul de sac. Impression 1. Normal-size anteverted uterus 2. Endometrium with echogenic changes 3. Normal right and left ovary us Jorge Santamaria MD IMG US PROCEDURES Edited Re sult - Final * US Pelvis W Endovaginal (10/24/2024 1:34 PM CDT) Cul de Sac Free fluid visualized VIEWPOINT Endometrial Thickness 8.3 mm&millim eters VIEWPOINT Anatomical Region Laterality Modality Pelvis N/A Ultrasound 10/24/2024 1:41 PM CDT Impressions 10/24/2024 2:30 PM CDT The uterus is anteverted and normal in size. No myometrial abnormalities were identified. The endometrium has areas of slight thickening at the fundus which could be c/w polyps but are not diagnostic of such. Normal sized ovaries with follicles were found in the adnexa. A small amount of free fluid is noted in the pelvis. Normal sized uterus with possible endometrial polyps - see above Normal appearing ovaries Narrative Procedure Note Soco Arambula MD - 10/24/2024 IMPRESSION: The uterus is anteverted and normal in size. No myometrial abnormalitieswere identified. The endometrium has areas of slight thickening at thefundus which could be c/w polyps but are not diagnostic of such. Normalsized ovaries with follicles were found in the adnexa. A small amount offree fluid is noted in the pelvis. Normal sized uterus with possible endometrial polyps - see above Normal appearing ovaries Mahnaz Joseph CNM [facility] [place] PROCEDURES Final Result * Pap and High Risk HPV and Genotyping (Cytology Component) (10/10/2024 1:26 PM CDT) Endocervical (Pap test) 10/10/2024 1:26 PM CDT 10/11/2024 9:01 AM CDT Narrative PATHOLOGY [facility] - 10/14/2024 11:16 AM CDT [facility] results best viewed via link to PDF [address] [address] Tele: Tanya Barajas MD - Stream Control Officer CYTOLOGY REPORT Note to Patients: This report may contain a detailed description of human tissue sent by a health care provider to the laboratory for pathologic evaluation. The content of this report is essential for diagnosis and may provide important critical findings. This information may be unfamiliar to patients to review without a medical professional present. It is advised that the patient review this report in the presence of a health care provider who can answer questions and explain the details. Patient Name: RAFITA ALEXANDRE Address: [address] [place] [address] Gender: F : 1990 (Age: 33) Service: Location: N : [id number] Hospital #: [id number] Patient Type: [facility] SPECIMEN Taken: 10/10/2024 Reported: 10/14/2024 Physician(s): Mahnaz Joseph CNM FINAL DIAGNOSIS: SOURCE OF SPECIMEN - ThinPrep Pap and HPV w/ reflex Genotyping: STATEMENT OF ADEQUACY Source: Cervical/Endocervical - Satisfactory for interpretation - Endocervical /Transformation Zone component present - Case screened using computer assisted imaging technology GENERAL CATEGORIZATION: - Negative for intraepithelial lesion or malignancy INTERPRETATION: - Blood present cad/10/14/2024 11:16Lisandra Villalta M.S., [place] (ASCP) Report Reviewed and Electronically Signed By Lisandra Villalta M.S., [place] (ASCP)Clerical Data Follow A; G0145 DIAGNOSIS COMMENT: Ancillary Testing: HPV Genotype 16 - Not Detected Reference Range: Not Detected HPV Genotype 18 - Not Detected Reference Range: Not Detected HPV High Risk Group (31, 33, 35, 39, 45, 51, 52, 56, 58, 59, 66 and 68) - Not Detected Reference Range: Not Detected This test was performed using the NISSA 4800 REPORT IMAGES AND/OR SCANNED DOCUMENTS ONLY VIEWABLE IN PDF FORMAT The Pap test is a screening test used to aid in the detection of cervical cancer and its precursors. It should not be the sole means by which malignant and premalignant lesions are diagnosed. Both false negative and false positive results may occur. It also has poor sensitivity for the detection of endometrial lesions and should not be used to evaluate suspected endometrial abnormalities. For these reasons it is most important to obtain Pap tests at regular intervals, as recommended by your physician or nurse practitioner. Frozen section, operating room consultation, gross examination and dissection, and case sign out may have been performed in part or completely in the following laboratories: [facility], [address] [address], [address] [place] [address]. Mahnaz Joseph [facility] LAB CYTOLOGY ORDERABLES Final Result Performing Organization Address City/State/[facility] Co de Phone Number PATHOLOGY [facility] Laboratory Receiving [address] [place] [address] * Surgical pathology (10/10/2024 1:26 PM CDT) Tissue (Endometrial biopsy) 10/10/2024 1:26 PM CDT 10/10/2024 5:18 PM CDT Narrative [facility]Y [facility] - 10/11/2024 10:36 AM CDT [address] [address] Tele: Tanya Barajas MD - Stream Control Officer Note to Patients: This report may contain a detailed description of human tissue sent by a health care provider to the laboratory for pathologic evaluation. The content of this report is essential for diagnosis and may provide important critical findings. This information may be unfamiliar to patients to review without a medical professional present. It is advised that the patient review this report in the presence of a health care provider who can answer questions and explain the details. SURGICAL PATHOLOGY REPORT Patient Name: RAFITA ALEXANDRE Address: [address] [place] [address] Gender: F : 1990 (Age: 33) Service: Location: , [facility] #: [id number] Patient Type: [facility] SPECIMEN Taken: 10/10/2024 Received 10/10/2024 Reported: 10/11/2024 Physician(s): Mahnaz Joseph CNM DIAGNOSIS: Uterus, endometrial lining, biopsy: - Menstrual endometrium [facility]/10/11/2024 10:36 Examining Pathologist: Anisa Harrison M.D. Report Reviewed and Electronically Signed By Anisa Harrison M.D. SPECIMEN TYPE: A: ENDOMETRIAL LINING BX CLINICAL IMPRESSION AND HISTORY: Menorrhagia with irregular cycle GROSS DESCRIPTION: Received in formalin in a single container with the patient's name, RAFITA ALEXANDRE labeled endometrial lining biopsy and contains multiple red-brown tissue fragments measuring 1.5 x 1 x 0.1 cm in aggregate. The specimen is filtered and submitted entirely in cassette A1. [facility]/10/10/2024 17:49 JAP,CU MICROSCOPIC DESCRIPTION: Microscopic examination supports the above captioned diagnosis. There is no hyperplasia or malignancy. Clerical Data Follows A; [id number] REPORT IMAGES AND/OR SCANNED DOCUMENTS ONLY VIEWABLE IN PDF FORMAT The immunohistochemical test(s) cited in this report, if any, was developed and its performance characteristics determined by [facility] Pathology Department. It has not been cleared or approved by the U.S. Food and Drug Administration. The FDA has determined that such clearance or approval is not necessary. This test is used for clinical purposes. It should not be regarded as investigational or for research. [facility] is certified under the Clinical Laboratory Improvement Amendments of 1988 (CLIA) as qualified to perform high complexity testing. Immunostains were performed on formalin-fixed paraffin embedded tissue using a polymer diaminobenzidine chromogen detection system. Antibodies used may include clone SP1 (rabbit monoclonal, estrogen receptor), clone 1E2 (rabbit monoclonal progesterone receptor), Ki-67 (rabbit monoclonal, 30-9), CD117 (rabbit polyclonal, c-kit), and anti-Her-2/mary (4B5) (rabbit monoclonal primary antibody). In the event that immunohistochemistry or special stains have been performed, attending physician has confirmed appropriateness of controls. Frozen section, operating room consultation, gross examination and dissection, and case sign out may have been performed in part or completely in the following laboratories: [facility], [address] [place] [address] [facility], [address] [place] [id number]. Mahnaz [facility] PATHOLOGY ORDERABLES Final Result Performing Organization Address City/[facility]/ZIP Co de Phone Number PATHOLOGY [facility] Laboratory Receiving [address] [place], [place] [id number] * ThinPrep processing (Molecular component) (10/10/2024 1:25 PM CDT) [facility] ThinPrep processing (Molecular component) Specimen received for processing. Endocervical 10/10/2024 1:25 PM CDT 10/10/2024 4:50 PM CDT Mahnaz [facility] LAB BODY FLUIDS AND STOOLS ORD ERABLES Final Result Performing Organization Address City/[facility]/ZIP Co de Phone Number [facility] [address] Department [place] [address] * High Risk HPV DNA Detection with Genotyping (Molecular component) (10/10/2024 1:25 PM CDT) Pathologist [facility] HPV HR 16 Not Detected Not Detected HPV HR 18 Not Detected Not Detected [facility] HPV HR Non 16/18 Not Detected Not Detected [facility] Comment: Interpretive Data Nucleic acid amplification for detection of high-risk Human Papilloma virus (HPV) is performed by the Carlos Nissa 4800 HPV test, which specifically detects high-risk HPV-16, 18, 31, 33, 35, 39, 45, 51, 52, 56, 58, 59, 66, and 68 genotypes. This assay has been approved by the [place] Food and Drug Administration for detection of HPV in cervical specimens collected by a physician using an endocervical brush/spatula or cervical broom and placed in the ThinPrep Pap Test PreservCyt collection containers. The performance characteristics of this test have been verified by the [facility]. Correlate with separately reported cytology results, as applicable. Interpretive data last revised 22 Endocervical 10/10/2024 1:25 PM CDT 10/10/2024 4:50 PM CDT Narrative [facility] 10/11/2024 7:52 PM CDT Clinical history and diagnosis->screening Number of vials->1 Testing type->Screening Last menstrual period (date if known)->unknown Mahnaz Joseph CNM LAB BODY FLUIDS AND STOOLS ORD ERABLES Final Result [facility] [address] Department [place] [address] * eGFR (10/10/2024 1:25 PM CDT) eGFR >90 >=60 mL/min/1. 73 m2 Comment: Interpretive Data Reference Interval Normal >/= 90 mL/min/1.73m2 Mildly decreased* 60 - 89 mL/min/1.73m2 Mildly to moderately decreased 45 - 59 mL/min/1.73m2 Moderately to severely decreased 30 - 44 mL/min/1.73m2 Severely decreased 15 - 29 mL/min/1.73m2 Kidney Failure < 15 mL/min/1.73m2 *Relative to young adult level Estimated glomerular filtration rate is determined by the 2020 CKD-EPI equation recommended by the National Kidney Foundation (A Unifying Approach to GFR Estimation: Recommendations of the NKF-ASK Task Force on Reassessing the Inclusion of Race in Diagnosing Kidney Disease, JASN 2020). The CKD-EPI equation should not be used for patients with unstable renal function and has not been validated in children and those over 70. Current interpretive data was last reviewed 2020. Blood 10/10/2024 1:25 PM CDT 10/10/2024 4:18 PM CDT Mahnaz Joseph [facility] BLOOD ORDERABLES Final Res ult [facility] [address] Department [place] [address] * Differential, auto (10/10/2024 1:25 PM CDT) Neutrophil abs 3.94 1.50 - 6.50 K/cumm Imm gran abs 0.02 0.00 - 0.10 K/cumm [facility] Lymphocyte abs 1.55 0.80 - 3.30 K/cumm [facility] Monocyte abs 0.46 0.20 - 0.80 K/cumm [facility] Eosinophil abs 0.03 0.00 - 0.50 K/cumm [facility] Basophil abs 0.04 0.00 - 0.10 K/cumm [facility] Neutrophil pct 65.2 % [facility] Comment: Interpretive Data Percent cell count reference ranges are not reported, since discordance with absolute values may lead to misinterpretation of CBC data. Current Interpretive Data was last revised on 2017. Imm gran pct 0.3 % [facility] Comment: Interpretive Data Percent cell count reference ranges are not reported, since discordance with absolute values may lead to misinterpretation of CBC data. Current Interpretive Data was last revised on 2017. Lymphocyte pct 25.7 % [facility] Comment: Interpretive Data Percent cell count reference ranges are not reported, since discordance with absolute values may lead to misinterpretation of CBC data. Current Interpretive Data was last revised on 2017. Monocyte pct 7.6 % [facility] Comment: Interpretive Data Percent cell count reference ranges are not reported, since discordance with absolute values may lead to misinterpretation of CBC data. Current Interpretive Data was last revised on 2017. Eosinophil pct 0.5 % [facility] Comment: Interpretive Data Percent cell count reference ranges are not reported, since discordance with absolute values may lead to misinterpretation of CBC data. Current Interpretive Data was last revised on 2017. Basophil pct 0.7 % [facility] Comment: Interpretive Data Percent cell count reference ranges are not reported, since discordance with absolute values may lead to misinterpretation of CBC data. Current Interpretive Data was last revised on 2017. Blood 10/10/2024 1:25 PM CDT 10/10/2024 4:19 PM CDT Mahnaz Joseph [facility] LAB BLOOD ORDERABLES Final Res ult [facility] [address] Department [place] [address] * CBC with auto differential (10/10/2024 1:25 PM CDT) WBC 6.04 3.80 - 9.90 K/cumm Hgb 13.8 11.9 - 15.5 g/dL [facility] Hct 42.1 35.6 - 45.5 % [facility] Plt 237 150 - 400 K/cumm [facility] MPV 12.0 9.1 - 12.3 fL [facility] RBC 4.71 3.90 - 5.20 M/cumm [facility] MCV 89.4 81.3 - 96.4 fL [facility] MCH 29.3 27.1 - 33.3 pg [facility] MCHC 32.8 32.3 - 35.7 g/dL [facility] RDW CV 12.9 11.1 - 14.9 % [facility] RDW SD 42.5 35.7 - 48.1 fL [facility] NRBC abs 0.00 0.00 - 0.01 K/cumm [facility] Blood 10/10/2024 1:25 PM CDT 10/10/2024 4:19 PM CDT Mahnaz Joseph [facility] BLOOD ORDERABLES Final Res ult [facility] [address] [facility] [place] [address] * T3, free (10/10/2024 1:25 PM CDT) Free T3 2.6 2.0 - 4.4 pg/mL Blood 10/10/2024 1:25 PM CDT 10/10/2024 4:18 PM CDT Mahnaz Joseph [facility] BLOOD ORDERABLES Final Res ult Performing Organization Address City/[facility]/ZIP Co de Phone Number [facility] [address] [facility] [place] [address] * TSH (10/10/2024 1:25 PM CDT) Thyroid Stimulating Hormone 1.63 0.30 - 4.20 mcIUnit/mL Blood 10/10/2024 1:25 PM CDT 10/10/2024 4:18 PM CDT Mahnaz Joseph [facility] BLOOD ORDERABLES Final Res ult Performing Organization Address City/[facility]/ZIP Co de Phone Number [facility] [facility] [address] [facility] [place] [address] * T4, free (10/10/2024 1:25 PM CDT) Free T4 1.19 0.90 - 1.70 ng/dL Blood 10/10/2024 1:25 PM CDT 10/10/2024 4:18 PM CDT Mahnaz Joseph [facility] LAB BLOOD ORDERABLES Final Res ult [facility] [address] [facility] [place] [address] * Comprehensive metabolic panel (10/10/2024 1:25 PM CDT) Sodium 141 135 - 145 mmol/L Potassium, pl 4.7 3.3 - 4.9 mmol/L [facility] Chloride 104 97 - 110 mmol/L [facility] CO2 26 22 - 32 mmol/L [facility] Anion gap 11 2 - 15 mmol/L [facility] BUN 14 6 - 25 mg/dL [facility] Creatinine 0.78 0.60 - 1.10 mg/dL [facility] Glucose 90 70 - 199 mg/dL [facility] Comment: Interpretive Data Fasting glucose >/= 126 mg/dl is diagnostic for diabetes. Fasting is defined as no caloric intake for at least 8 hours. Fasting glucose between 100 mg/dl to 125 mg/dl is diagnostic of prediabetes. In a patient with classic symptoms of hyperglycemia or hyperglycemic crisis, a random glucose >/= 200 mg/dl is diagnostic for diabetes. In the absence of unequivocal hyperglycemia, results should be confirmed by repeat testing. The classification and Diagnosis of Diabetes Diabetes Care 2021; 46: S19-S40. Current interpretive data was last revised 2022. Calcium 9.3 8.5 - 10.3 mg/dL [facility] Bilirubin, total 0.6 0.1 - 1.2 mg/dL [facility] Protein, pl 7.3 6.5 - 8.5 g/dL [facility] Albumin 4.7 3.5 - 5.0 g/dL [facility] Alk phos 49 40 - 130 Units/L [facility] ALT 16 7 - 45 Units/L [facility] AST 22 10 - 45 Units/L [facility] Blood 10/10/2024 1:25 PM CDT 10/10/2024 4:18 PM CDT us Mahnaz Joseph CNM LAB BLOOD ORDERABLES Final Res ult [facility] [address] Department [place] [address] from Last 3 Months Insurance [facility] [employer] [employer] [employer] Care 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
[2024-12-28 17:03] VITALS: BP 131/87; PULSE 87; RESP 16; TEMP 37.2; O2SAT 100
--- NOTE | 2024-12-28 17:18 | PC.NURSE ---
C-collar placed on patient by staff.
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
[2024-12-28] MEDS: MORPHINE SULFATE (*CRX) 4 MG/ML INJ IV PUSH (18:01)
[2024-12-28] MEDS: ONDANSETRON INJ 4 MG/2 ML VIAL IV PUSH (18:02)
--- OUTSIDE RECORDS SUMMARY | 2024-12-28 18:02 | XMS_ITS | Clinical Summary ---
Author Organization [facility] Address [facility] [place] [address] Care Team Providers Care Dependency Counselor Name Role Phone Lonnie Matute MD Primary Care Provider [phone]- [phone] Allergies Active Allergy Reactions Criticality Noted Date [...] Type Department Care Team Description 11/02/2024 Telephone [facility] [address] [place] [address] [address] [place] [address] Jorge Santamaria MD 10/26/2024 Telephone [facility] [address] [place] [phone] Jorge Santamaria MD Surgery Confirmation 10/25/2024 Telephone [facility] [address] [place] [phone] Jorge Santamaria MD Surgery Confirmation 10/24/2024 3:30 PM CDT Office Visit [facility] [address] [place] [phone] Jorge Santamaria MD Abnormal uterine bleeding (Primary Dx); Endometriosis 10/24/2024 1:30 PM CDT - 10/24/2024 11:59 PM CDT Hospital Encounter [facility] Outpatient Health - Ultrasound [address], 7th [address], [address] [facility] [place] [address] Menorrhagia with irregular cycle Discharge Disposition: Discharge to home or self care 10/11/2024 Results Follow-Up [facility] [address] [address] Mahnaz Joseph CNM Comprehensive metabolic panel, CBC with auto differential, T4, free, Additional followed-up results: 6 10/10/2024 1:34 PM CDT - 10/10/2024 11:59 PM CDT Hospital Encounter [address] [phone] Menorrhagia with irregular cycle; Screening for malignant neoplasm of cervix Discharge Disposition: Discharge to home or self care 10/10/2024 12:00 PM CDT Office Visit [facility] Midwifery at [address] [address] Mahnaz Joseph CNM Screening for malignant neoplasm of cervix (Primary Dx); Menorrhagia with irregular cycle 10/10/2024 11:30 AM CDT Clinical Support [facility] [address] [place] [address] Endometriosis (Primary Dx); Abnormal uterine bleeding (AUB) 10/10/2024 Telephone [facility] [address] [place] [address] Jorge Santamaria MD from Last [...] on file Legal Sex Female 5:58 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 Gender Identity Not on file Sexual Orientation [...] Livin g 8 9 Leydi NEGRETE Delivery Location:[facility] Comments:No observed a nomalies 2016 Term 40w 3d 12h 40m/0h 13m/ 3.033 kg (6 lb 11 oz) F Vag-S pont N Livin g 9 9 Mehdi GUEVARA Delivery [facility] Comments:No observed a nomalies Last Filed Vital [...] (Latest Contact Info) Description 01/31/2025 7:30 AM POND SCALER Hospital Encounter [facility] Operating Room [address] [place] [phone] Jorge Santamaria MD [address] [address] 01/31/2025 7:30 AM POND SCALER - 01/31/2025 10:30 AM POND SCALER Surgery [facility] Operating Room [address] [place] [phone] Jorge Santamaria MD [address] [address] Robotic Assisted Hysterectomy, Bilateral Salpingectomy Scheduled Procedures Name Priority Associated Diagnoses Date/Ti me XI HYSTERECTOMY - LAPAROSCOPIC ROBOTIC ASSISTED Abnormal vaginal bleeding 01/31/2025 7:30 AM POND SCALER Health Maintenance Due Date Last Done Comments [...] above Normal appearing ovaries Mahnaz Joseph CNM [facility] US PROCEDURES Final Result * Pap and High Risk HPV and Genotyping (Cytology Component) (10/10/2024 1:26 PM CDT) Endocervical (Pap test) 10/10/2024 1:26 PM CDT 10/11/2024 9:01 AM CDT Narrative PATHOLOGY [facility] - 10/14/2024 11:16 AM CDT [facility] results best viewed via link to PDF [address] [address] Tele: Tanya Barajas MD - [facility] CYTOLOGY REPORT Note to Patients: This report [...] the details. Patient Name: RAFITA ALEXANDRE Address: [address] [place] [address] Gender: F : 1990 (Age: 33) Service: Location: N : [id number] Hospital #: [id number] Patient Type: [facility] SPECIMEN Taken: 10/10/2024 Reported: 10/14/2024 Physician(s): Mahnaz [...] part or completely in the following laboratories: [facility], [address] [place] [address], [address] [place] [address]. Mahnaz Joseph [facility] CYTOLOGY ORDERABLES Final Result Performing Organization Address City/State/[facility] Co de Phone Number PATHOLOGY [facility] Laboratory Receiving [address] [place] [address] * Surgical pathology (10/10/2024 1:26 PM CDT) Tissue (Endometrial biopsy) 10/10/2024 1:26 PM CDT 10/10/2024 5:18 PM CDT Narrative PATHOLOGY [facility] - 10/11/2024 10:36 AM CDT [address] [address] Tele: Tanya Barajas MD - [employer] Note to Patients: This report may contain [...] PATHOLOGY REPORT Patient Name: RAFITA ALEXANDRE Address: [address] [place] [address] Gender: F : 1990 (Age: 33) Service: Location: , [facility] #: [id number] Patient Type: [facility] SPECIMEN Taken: 10/10/2024 Received 10/10/2024 Reported: 10/11/2024 Physician(s): Mahnaz Joseph CNM DIAGNOSIS: Uterus, endometrial lining, biopsy: - Menstrual endometrium [facility]/10/11/2024 10:36 Examining Pathologist: Anisa Harrison M.D. [...] filtered and submitted entirely in cassette A1. [facility]/10/10/2024 17:49 JAP,CU MICROSCOPIC DESCRIPTION: Microscopic examination supports the above captioned diagnosis. There is no hyperplasia or malignancy. Clerical Data Follows A; 72699 REPORT IMAGES AND/OR SCANNED DOCUMENTS ONLY VIEWABLE IN PDF FORMAT The immunohistochemical test(s) cited in this report, if any, was developed and its performance characteristics determined by [facility] Pathology Department. It has not been cleared or approved by the U.S. Food and Drug Administration. The FDA has determined that such clearance or approval is not necessary. This test is used for clinical purposes. It should not be regarded as investigational or for research. [facility] Laboratory is certified under the Clinical Laboratory [...] part or completely in the following laboratories: [facility], [address] [place] [address] [facility], [address] [place] [address]. Mahnaz [facility] PATHOLOGY ORDERABLES Final Result Performing Organization Address City/[facility]/ZIP Co de Phone Number PATHOLOGY [facility] Laboratory Receiving [address] [place], [place] [id number] * ThinPrep processing (Molecular component) (10/10/2024 1:25 PM CDT) [facility] ThinPrep processing (Molecular component) Specimen received for processing. Endocervical 10/10/2024 1:25 PM CDT 10/10/2024 4:50 PM CDT Mahnaz [facility] BODY FLUIDS AND STOOLS ORD ERABLES Final Result Performing Organization Address City/[facility]/ZIP Co de Phone Number [facility] [address] Department [place] [address] * High Risk HPV DNA Detection with Genotyping (Molecular component) (10/10/2024 1:25 PM CDT) Pathologist [facility] HPV HR 16 Not Detected Not Detected HPV HR 18 Not Detected Not Detected [facility] HPV HR Non 16/18 Not Detected Not Detected [facility] Comment: Interpretive Data Nucleic acid amplification for [...] this test have been verified by the [facility] Laboratory. Correlate with separately reported cytology results, as applicable. Interpretive data last revised 22 Endocervical 10/10/2024 1:25 PM CDT 10/10/2024 4:50 PM CDT Narrative [facility] 10/11/2024 7:52 PM CDT Clinical history and diagnosis->screening Number of vials->1 Testing type->Screening Last menstrual period (date if known)->unknown Mahnaz Joseph CNM LAB BODY FLUIDS AND STOOLS ORD ERABLES Final Result [facility] [address] Department [place] [address] * eGFR (10/10/2024 1:25 PM CDT) eGFR [...] CDT 10/10/2024 4:18 PM CDT Mahnaz Joseph [facility] BLOOD ORDERABLES Final Res ult [facility] [address] Department [place] [address] * Differential, auto (10/10/2024 1:25 PM CDT) Neutrophil abs 3.94 1.50 - 6.50 K/cumm Imm gran abs 0.02 0.00 - 0.10 K/cumm [facility] Lymphocyte abs 1.55 0.80 - 3.30 K/cumm [facility] Monocyte abs 0.46 0.20 - 0.80 K/cumm [facility] Eosinophil abs 0.03 0.00 - 0.50 K/cumm [facility] Basophil abs 0.04 0.00 - 0.10 K/cumm [facility] Neutrophil pct 65.2 % [facility] Comment: Interpretive Data Percent cell count reference ranges are not reported, since discordance with absolute values may lead to misinterpretation of CBC data. Current Interpretive Data was last revised on 2017. Imm gran pct 0.3 % [facility] Comment: Interpretive Data Percent cell count reference ranges are not reported, since discordance with absolute values may lead to misinterpretation of CBC data. Current Interpretive Data was last revised on 2017. Lymphocyte pct 25.7 % [facility] Comment: Interpretive Data Percent cell count reference ranges are not reported, since discordance with absolute values may lead to misinterpretation of CBC data. Current Interpretive Data was last revised on 2017. Monocyte pct 7.6 % [facility] Comment: Interpretive Data Percent cell count reference ranges are not reported, since discordance with absolute values may lead to misinterpretation of CBC data. Current Interpretive Data was last revised on 2017. Eosinophil pct 0.5 % [facility] Comment: Interpretive Data Percent cell count reference ranges are not reported, since discordance with absolute values may lead to misinterpretation of CBC data. Current Interpretive Data was last revised on 2017. Basophil pct 0.7 % [facility] Comment: Interpretive Data Percent cell count reference ranges are not reported, since discordance with absolute values may lead to misinterpretation of CBC data. Current Interpretive Data was last revised on 2017. Blood 10/10/2024 1:25 PM CDT 10/10/2024 4:19 PM CDT Mahnaz Joseph [facility] BLOOD ORDERABLES Final Res ult [facility] [address] Department [place] [address] * CBC with auto differential (10/10/2024 1:25 PM CDT) WBC 6.04 3.80 - 9.90 K/cumm Hgb 13.8 11.9 - 15.5 g/dL [facility] Hct 42.1 35.6 - 45.5 % [facility] Plt 237 150 - 400 K/cumm [facility] MPV 12.0 9.1 - 12.3 fL [facility] RBC 4.71 3.90 - 5.20 M/cumm [facility] MCV 89.4 81.3 - 96.4 fL [facility] MCH 29.3 27.1 - 33.3 pg [facility] MCHC 32.8 32.3 - 35.7 g/dL [facility] RDW CV 12.9 11.1 - 14.9 % [facility] RDW SD 42.5 35.7 - 48.1 fL [facility] NRBC abs 0.00 0.00 - 0.01 K/cumm [facility] Blood 10/10/2024 1:25 PM CDT 10/10/2024 4:19 PM CDT Mahnaz Joseph [facility] BLOOD ORDERABLES Final Res ult [facility] [address] [facility] [place] [address] * T3, free (10/10/2024 1:25 PM CDT) Free T3 2.6 2.0 - 4.4 pg/mL Blood 10/10/2024 1:25 PM CDT 10/10/2024 4:18 PM CDT Mahnaz Joseph [facility] BLOOD ORDERABLES Final Res ult Performing Organization Address City/[facility]/ZIP Co de Phone Number [facility] [address] [facility] [place] [address] * TSH (10/10/2024 1:25 PM CDT) Thyroid Stimulating Hormone 1.63 0.30 - 4.20 mcIUnit/mL Blood 10/10/2024 1:25 PM CDT 10/10/2024 4:18 PM CDT Mahnaz Joseph [facility] BLOOD ORDERABLES Final Res ult Performing Organization Address City/[facility]/ZIP Co de Phone Number [facility] [address] [facility] [place] [address] * T4, free (10/10/2024 1:25 PM CDT) Free T4 1.19 0.90 - 1.70 ng/dL Blood 10/10/2024 1:25 PM CDT 10/10/2024 4:18 PM CDT Mahnaz Joseph [facility] BLOOD ORDERABLES Final Res ult [facility] [address] [facility] [place] [address] * Comprehensive metabolic panel (10/10/2024 1:25 PM CDT) Sodium 141 135 - 145 mmol/L Potassium, pl 4.7 3.3 - 4.9 mmol/L [facility] Chloride 104 97 - 110 mmol/L [facility] CO2 26 22 - 32 mmol/L [facility] Anion gap 11 2 - 15 mmol/L [facility] BUN 14 6 - 25 mg/dL [facility] Creatinine 0.78 0.60 - 1.10 mg/dL [facility] Glucose 90 70 - 199 mg/dL [facility] Comment: Interpretive Data Fasting glucose >/= 126 [...] 2022. Calcium 9.3 8.5 - 10.3 mg/dL [facility] Bilirubin, total 0.6 0.1 - 1.2 mg/dL [facility] Protein, pl 7.3 6.5 - 8.5 g/dL [facility] Albumin 4.7 3.5 - 5.0 g/dL [facility] Alk phos 49 40 - 130 Units/L [facility] ALT 16 7 - 45 Units/L [facility] AST 22 10 - 45 Units/L [facility] Blood 10/10/2024 1:25 PM CDT 10/10/2024 4:18 PM CDT us Mahnaz Joseph CNM LAB BLOOD ORDERABLES Final Res ult [facility] [address] Department [place] [address] from Last 3 Months Insurance [facility] CHOICE PLUS [facility] CHOICE PLUS Care Teams Dependency Counselor Relationship Specialty Start Date End Date Lonnie Matute MD [address] [place] [address] PCP - General Family Medicine 08/21/23
--- OUTSIDE RECORDS SUMMARY | 2024-12-28 18:02 | XMS_ITS | Encounter Summary ---
Author Organization [facility] Address [address] [place] [address] Care Team Providers Care Doll Wigs Hackler Name Role Phone [facility], External Provider Primary Care Provider U navailable Reason for Visit * Reason Onset Date Comments Feeding Problem 03/20/2015 Encounter Details Date Type Department Care Team (Late st Contact Info) Description 03/20/2015 Telephone [facility] [address] [place] [address] Viktoria Carr RN Feeding Problem [...] has decreased. 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
--- OUTSIDE RECORDS SUMMARY | 2024-12-28 18:02 | XMS_ITS | Clinical Summary ---
Author Organization [facility] Address [address] [place] [address] Phone Care Team Providers Care Vaccinator Name Role Phone [facility], External Provider Primary Care Provider U navailable [...] 11/02/2014 Overview (11/02/2014): Sonogram on 08/16/14 with [place] [place] indicated anterior placenta with inferior edge that extends to within 2cm of internal os, Plan for patient to have repeat scan at [facility] at 28 weeks for placenta location. SONO ON 10/17/[address] [facility]---PLACENTA NO LONGER LOW LYING Immunizations Immunization [...] Most Recently Relevant to Health Maintenance Insurance [facility] CHOICE [id number] Advance Directives For more information, please contact: [phone] * Full Code (Latest Code Status on [...] 4:30 AM 01/11/2015 2:15 PM Care Teams Vaccinator Relationship Specialty Start Date End Date [facility], External Provider [address] [place] [address] PCP - General 02/24/18
--- OUTSIDE RECORDS SUMMARY | 2024-12-28 18:02 | XMS_ITS | Clinical Summary ---
Author Organization [facility] Address [address] [place] [address] Care Team Providers Care Senior Management Consultant Name Role Phone Unavailable Primary Care Provider [...]
[2024-12-28] MEDS: HYDROcodone/acetaminophen (*CRX) 5-325 MG TABLET 1 TAB PO (19:26)
[2024-12-28 20:25] LABS: BEDSIDEPREGUCG Negative (Negative)
[2024-12-28 20:31] LABS: Hematocrit 35.3 % (37.0-47.0); Hemoglobin 12.0 g/dL (12.0-15.0); Immature Granulocyte Percent A 0.5 % (0-0.5); Lymphocytes Absolute Auto 1.51 K/mm3 (0.9-3.2); Mean Corpuscular HGB Conc 34.0 g/dl (32-36); Mean Corpuscular Hemoglobin 29.4 pg (26-34); Mean Corpuscular Volume 86.5 fl (80-100); Nucleated Red Blood Cells Absolute Auto 0.000 K/mm3 (0.0-0.012); Nucleated Red Blood Cells Perc 0.0 % (0.0-0.2); Platelet Count Result 255 k/mm3 (150-375); Red Blood Count 4.08 M/mm3 (4.2-5.4); White Blood Count 15.8 K/mm3 (4.5-10.0)
[2024-12-28 20:40] LABS: Anion Gap 6 mmol/L (4-12); Blood Urea Nitrogen 10 mg/dL (7-17); Calcium 8.3 mg/dL (8.4-10.2); Carbon Dioxide 26 mmol/L (22-30); Chloride 103 mmol/L (98-107); Estimated CRCL calculation 86 ml/min; Estimated Glomerular Filt Rate > 60; Glucose 83 mg/dL (65-110); Potassium 3.4 mmol/L (3.4-5.0); Sodium 135 mmol/L (137-145)
[2024-12-28 20:42] LABS: Add Urine Microscopic? YES; Appearance Urine Cloudy (Clear); Glucose Urine UA Negative (Negative); Leukocyte Esterase Ur Negative LEU/UL (Negative); Need Manual Microscopic Reviewed; Nitrate Urine Negative (Negative); Specific Grav Ur 1.021 (1.001-1.035)
[2024-12-28] MEDS: diazePAM (*CRX) 5 MG TABLET 2.5 MG PO (22:10)
[2024-12-28] MEDS: BENZONATATE 100 MG CAPSULE PO (22:10)
[2024-12-28] MEDS: KETOROLAC 15 MG/ML VIAL (*BKC) IV PUSH (22:11)
== END 2024-12-28 22:22 | disposition home or self-care (01) ==
PROVIDERS: Emergency Provider Student in an Organized Health Care Education/Training Program
DX: M54.2 Cervicalgia (principal); D72.829 Elevated white blood cell count, unspecified; J40 Bronchitis, not specified as acute or chronic; V89.2XXA Person injured in unspecified motor-vehicle accident, traffic, initial encounter; W22.10XA Striking against or struck by unspecified automobile airbag, initial encounter
CPT/HCPCS: 36415; 70450; 71260; 72125; 73562; 74177; 80048; 81001; 81025; 85025; 96374; 96375; 99284; A9270; J1885; J2270; J2405; Q9967